=== PATIENT | female | born 2000 | race Asian ===

== ENCOUNTER 2022-04-28 00:08 | Emergency (ER) | payer SELFPAY ==
[~2022-04-28] VITALS: Ht 149.9 cm; Wt 54.0 kg
[2022-04-28 00:27] VITALS: BP 107/81
== END 2022-04-28 01:25 | disposition left against medical advice (07) ==
LOC: ER 00:08
DX: Z53.21 Procedure and treatment not carried out due to patient leaving prior to being seen by health care provider (principal)